=== PATIENT | female | born 1960 | race Caucasian/White ===

== ENCOUNTER 2017-11-05 05:04 | Inpatient (IN) | payer OTHER, BC ==
[~2017-11-05] VITALS: Ht 160 cm; Wt 69.0 kg
[2017-11-05] MEDS ORDERED: ALDACTONE25 MG PO (05:32)
[2017-11-05] MEDS ORDERED: OMEPRAZOLE20 MG PO ×2 (05:33→09:12)
[2017-11-05] MEDS ORDERED: ZYPREXA2.5 MG PO (05:33)
[2017-11-05] MEDS ORDERED: NORCO 5-325 TA1 EACH PO (05:34)
[2017-11-05] MEDS ORDERED: DIAZEPAM2 MG PO (05:35)
[2017-11-05] MEDS ORDERED: PHENTERMINE H37.5 M1 PO (05:36)
[2017-11-05] MEDS ORDERED: SPIRONOLACTONE25 MG PO (05:36)
[2017-11-05] MEDS ORDERED: CLONIDINE HCL0.1 MG (05:36)
[2017-11-05] MEDS ORDERED: LAMOTRIGINE200 MG PO (05:37)
[2017-11-05] MEDS ORDERED: OLANZAPINE2.5 MG PO (05:38)
[2017-11-05] MEDS ORDERED: ESTRADIOL1 EAC1 TD (05:38)
[2017-11-05] MEDS ORDERED: HYDROCHLOROTHIA25 MG PO (05:39)
[2017-11-05] MEDS ORDERED: K-TAB ER20 MEQ PO (05:40)
[2017-11-05] MEDS ORDERED: VENTOLIN HFA18 GM INH (05:40)
[2017-11-05] MEDS ORDERED: POTASSIUM CHLO20 ME1 PO (05:41)
[2017-11-05] MEDS ORDERED: OMEPRAZOLE40 MG PO (05:41)
[2017-11-05] MEDS ORDERED: CATAPRES0.1 MG PO (11:40)
--- NOTE | 2017-11-05 20:38 | EKG ---
[facility] [address] [facility] [place] [address] Signed Sinus tachycardia Possible Left atrial enlargement Cannot rule out Anterior infarct , age undetermined Abnormal ECG No previous ECGs available Confirmed by CODIE PARRA MD ([id number]) on 11/05/2017 8:37:59 PM Electronically Signed By: CODIE PARRA MD 11/05/172037 PATIENT NAME: MANDO DEAN VANIA Electrocardiogram DATE OF : 58 PHYSICIAN: CODIE PARRA MD REPORT #: [id number] REPORT IS CONFIDENTIAL AND NOT TO BE RELEASED WITHOUT AUTHORIZATION
== END 2017-11-05 15:00 | disposition short-term general hospital (02) | DRG 189 ==
LOC: ED 05:04 → MS 07:55
PROVIDERS: ADMIT Internal Medicine
DX: J96.01 Acute respiratory failure with hypoxia (principal); J18.9 Pneumonia, unspecified organism; Z85.79 Personal history of other malignant neoplasms of lymphoid, hematopoietic and related tissues; Z85.118 Personal history of other malignant neoplasm of bronchus and lung; K21.9 Gastro-esophageal reflux disease without esophagitis; Z87.891 Personal history of nicotine dependence; Z88.0 Allergy status to penicillin; Z98.84 Bariatric surgery status; Z92.21 Personal history of antineoplastic chemotherapy
CPT/HCPCS: 70450; 71020; 71260; 80053; 83880; 84155; 84165; 84484; 85025; 85379; 87502; 93005; 93010; 94762; 96374; 96375; 99285; J1170; J1650; J1956; J2405; J2920; Q9967

== ENCOUNTER 2022-04-13 15:06 | Emergency (ER) | payer BC ==
[~2022-04-13] VITALS: Ht 160 cm; Wt 81.3 kg
[~2022-04-13 15:06] MED LIST: ALDACTONE25 MG PO; CATAPRES0.1 MG PO; CLONIDINE HCL0.1 MG; DIAZEPAM2 MG PO; ESTRADIOL1 EAC1 TD; HYDROCHLOROTHIA25 MG PO; K-TAB ER20 MEQ PO; LAMOTRIGINE200 MG PO; NORCO 5-325 TA1 EACH PO; OLANZAPINE2.5 MG PO; OMEPRAZOLE20 MG PO; OMEPRAZOLE40 MG PO; PHENTERMINE H37.5 M1 PO; POTASSIUM CHLO20 ME1 PO; SPIRONOLACTONE25 MG PO; VENTOLIN HFA18 GM INH; ZYPREXA2.5 MG PO
--- OUTSIDE RECORDS SUMMARY | 2022-04-13 15:10 | XMS ---
PreManage Notification: MANDO DEAN Security Print Line Inspector Events No recent Security Events currently on file CRITERIA MET - PDMP [facility]ARE [facility]: [phone] Jordon has no Care Guidelines for this patient. Milady VISIT COUNT (12 MO.) 1 ESTIVEN Shaikh TOTAL 1 NOTE: Visits indicate total known visits. ED/UCC VISIT TRACKING (12 MO.) 04/13/2022 15:07 ESTIVEN Escobedo OR TYPE: Emergency COMPLAINT: - POSS BLOODCLOT R LEG INPATIENT VISIT TRACKING (12 MO.) No inpatient visits to display in this time frame [id number]
== END 2022-04-13 16:45 | disposition home or self-care (01) ==
LOC: ED 15:06
DX: S86.911A Strain of unspecified muscle(s) and tendon(s) at lower leg level, right leg, initial encounter (principal); J45.909 Unspecified asthma, uncomplicated; Z85.118 Personal history of other malignant neoplasm of bronchus and lung; Z87.891 Personal history of nicotine dependence; Z88.0 Allergy status to penicillin; Z88.5 Allergy status to narcotic agent; Z88.8 Allergy status to other drugs, medicaments and biological substances; Z79.899 Other long term (current) drug therapy
CPT/HCPCS: 93971; 99283-25

== ENCOUNTER 2022-05-30 13:58 | Emergency (ER) | payer BC ==
[~2022-05-30] VITALS: Ht 160 cm; Wt 74.5 kg
--- OUTSIDE RECORDS SUMMARY | 2022-05-30 14:00 | XMS ---
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 Milady VISIT COUNT (12 MO.) 2 ESTIVEN Shaikh TOTAL 2 NOTE: Visits indicate total known visits. ED/UCC VISIT TRACKING (12 MO.) 05/30/2022 13:58 ESTIVEN Escobedo OR TYPE: Emergency COMPLAINT: - INFUSION 04/13/2022 15:07 ESTIVEN [facility]obedo OR TYPE: Emergency COMPLAINT: - POSS BLOODCLOT R LEG DIAGNOSES: - Strain of unspecified muscle(s) and tendon(s) at lower leg level, right leg, initial encounter - Personal history of other malignant neoplasm of bronchus and lung - Allergy status to other drugs, medicaments and biological substances - Allergy status to narcotic agent - Allergy status to penicillin - Unspecified asthma, uncomplicated - Other alf (current) drug therapy - Personal history of nicotine dependence - Pain in right leg INPATIENT VISIT TRACKING (12 MO.) No inpatient visits to display in this time frame [email or web address]
== END 2022-05-30 17:49 | disposition home or self-care (01) ==
LOC: ED 13:58
DX: U07.1 COVID-19 (principal); Z23 Encounter for immunization; J45.909 Unspecified asthma, uncomplicated; Z87.891 Personal history of nicotine dependence; Z88.0 Allergy status to penicillin; Z88.5 Allergy status to narcotic agent; Z88.8 Allergy status to other drugs, medicaments and biological substances; Z79.899 Other long term (current) drug therapy
CPT/HCPCS: 96374; 99283-25

== ENCOUNTER 2023-01-09 15:16 | Emergency (ER) | payer BC ==
[~2023-01-09] VITALS: Ht 160 cm; Wt 68.5 kg
[~2023-01-09 15:16] MED LIST changes: +ALBUTEROL2.5 MG/3 M INH; +CEFPODOXIME PR200 MG PO; +DULCOLAX5 MG PO; +ESTRADIOL1 EA10 TD; +ESTRADIOL1 EAC5 TD; +FLUTICASONE PRO16 GM NAS; +FRONT WHEELED WALKER XX; +FUROSEMIDE20 MG PO; +GABAPENTIN100 MG PO; +HYDROMORPHONE HC2 MG PO; +LAMOTRIGINE100 MG PO; +LAMOTRIGINE150 MG PO; +METRONIDAZOLE500 MG PO; +MIRALAX17 GM PO; +OLANZAPINE10 MG PO; +SYMBICORT 80-10.2 GM INH
--- OUTSIDE RECORDS SUMMARY | 2023-01-09 15:18 | XMS ---
PreManage Notification: MANDO DEAN Security Earth Mover Events No recent Security Events currently on file CRITERIA MET - PDMP [facility]: [phone] Jordon has no Care Guidelines for this patient. Milady VISIT COUNT (12 MO.) 4 ESTIVEN Shaikh TOTAL 4 NOTE: Visits indicate total known visits. ED/UCC VISIT TRACKING (12 MO.) 01/09/2023 15:17 ESTIVEN Escobedo OR TYPE: Emergency COMPLAINT: - SOB, COUGH 10/02/2022 12:59 ESTIVEN Escobedo OR TYPE: Emergency COMPLAINT: - FALL, DIZZY, HEAD/BACK INJURY 05/30/2022 13:58 ESTIVEN [facility]obedo OR TYPE: Emergency COMPLAINT: - INFUSION DIAGNOSES: - Allergy status to penicillin - Unspecified asthma, uncomplicated - Allergy status to other drugs, medicaments and biological substances - COVID-19 - Personal history of nicotine dependence - Encounter for immunization - Cough, unspecified - Other alf (current) drug therapy - Allergy status to narcotic agent 04/13/2022 15:07 ESTIVEN Escobedo OR TYPE: Emergency COMPLAINT: - POSS BLOODCLOT R LEG DIAGNOSES: - Allergy status to other drugs, medicaments and biological substances - Strain of unspecified muscle(s) and tendon(s) at lower leg level, right leg, initial encounter - Personal history of nicotine dependence - Unspecified asthma, uncomplicated - Allergy status to narcotic agent - Personal history of other malignant neoplasm of bronchus and lung - Pain in right leg - Other alf (current) drug therapy - Allergy status to penicillin INPATIENT VISIT TRACKING (12 MO.) 10/02/2022 13:00 ESTIVEN Escobedo OR TYPE: Observation COMPLAINT: - SYNCOPE,SACRAL FRACTURE DIAGNOSES: - Pneumonitis due to inhalation of food and vomit - Allergy status to narcotic agent - Pathological fracture, other site, initial encounter for fracture - Personal history of nicotine dependence - Acute respiratory failure with hypoxia - Unspecified asthma, uncomplicated - Bipolar disorder, unspecified - Allergy status to analgesic agent - Other termite renewal inspector (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
[2023-01-09] MEDS ORDERED: FUROSEMIDE20 MG PO (15:35)
[2023-01-09] MEDS ORDERED: LORAZEPAM0.5 MG PO (15:36)
[2023-01-09] MEDS ORDERED: SPIRONOLACTONE25 MG PO (15:37)
[2023-01-09] MEDS ORDERED: DOXYCYCLINE HY100 MG PO (16:47)
--- NOTE | 2023-01-10 07:32 | EKG ---
[facility] [address] [facility] [place], [place] [address] Signed Normal sinus rhythm Normal ECG When compared with ECG of 02-OCT-2022 13:49, No significant change was found Confirmed by CODIE PARRA MD ([id number]) on 01/10/2023 7:32:24 AM Electronically Signed By: CODIE PARRA MD 01/10/23 0732 PATIENT NAME: CECILIO DEANBUCK CARO Electrocardiogram DATE OF : 58 PHYSICIAN: CODIE PARRA MD REPORT #: [id number] REPORT IS CONFIDENTIAL AND NOT TO BE RELEASED WITHOUT AUTHORIZATION
== END 2023-01-09 18:40 | disposition home or self-care (01) ==
LOC: ED 15:16
DX: J18.9 Pneumonia, unspecified organism (principal); E86.0 Dehydration; Z20.822 Contact with and (suspected) exposure to COVID-19; J45.909 Unspecified asthma, uncomplicated; Z87.891 Personal history of nicotine dependence; Z88.0 Allergy status to penicillin; Z88.2 Allergy status to sulfonamides; Z88.8 Allergy status to other drugs, medicaments and biological substances; Z88.6 Allergy status to analgesic agent; Z79.899 Other long term (current) drug therapy
CPT/HCPCS: 36415; 71045; 80053; 81003; 84484; 85025; 87502; 93005; 93010; 96361; 96374; 96375; 99285-25; C9803; J0456; J0696; J7030; J7060; U0003

== ENCOUNTER 2025-04-04 16:44 | Inpatient (IN) | payer MEDICARE, OTHER ==
[~2025-04-04] VITALS: Ht 160 cm; Wt 67.3 kg
[~2025-04-04 16:44] MED LIST changes: +AZITHROMYCIN500 MG PO; +CALCIUM 600-VI1 EAC6 PO; +CEFDINIR300 MG PO; +DOXYCYCLINE HY100 MG PO; +IBUPROFEN100 MG/51 PO; +IPRAT-ALBUT 0.5-3 ML INH; +IRON325 M1 PO; +LEVOTHYROXINE75 MCG PO; +LORAZEPAM0.5 MG PO; +MULTI VITAMIN1 EACH PO; +ONDANSETRON ODT8 MG PO; +PREDNISONE20 MG PO; +VITAMIN C500 M1 PO; +VITAMIN K100 MCG PO; +[UNRECOGNIZED DRUG - OTHER] PO
[2025-04-04] MEDS ORDERED: HYDROmorphone HCL 1 MG/ML SYR IV PRN ×2 (17:30→18:45)
[2025-04-04] MEDS ORDERED: ondansetron HCL 4 MG/2 ML VIAL IV ONE (17:30)
[2025-04-04 17:51] LABS: BASOPHILS 0.3 % (0.1-1.2); EOSINOPHILS 0 % (0.7-5.8); HEMATOCRIT 36.6 % (34.1-44.9); HEMOGLOBIN 11.2 g/dL (11.2-15.7); LYMPHOCYTES 21.8 % (19.3-51.7); MCH 26.7 PG (25.6-32.2); MCHC 30.6 g/dL (32.2-35.5); MCV 87.1 fL (79.4-94.8); MONOCYTES 6.6 % (4.7-12.5); PLATELET COUNT 277 K/uL (182-369)
[2025-04-04 18:00] LABS: ANION GAP 6.9 (7-21); BUN/CREATININE RATIO 11.5 (6.0-28.6); CREATININE, SERUM 1.13 mg/dL (0.55-1.02); INR 1.05 (0.80-1.30); POTASSIUM 3.9 mmol/L (3.5-5.1); PROTIME 13.1 Sec (11.2-14.2)
[2025-04-04 20:13] VITALS: BP 119/56
--- NOTE | 2025-04-04 20:37 | NUR ---
PATIENT ARRIVED TO THE FLOOR VIA STRETCHER. PATIENT MOVED FROM STRETCHER TO BED BY STAFF. PATIENT POSTIONED IN BED FOR COMFORT. PUREWICK PLACED. PATIENTS VITALS TAKEN AND RECORDED. PATIENTS ADMISSION COMPLETED. MANDA LOCKETT TO ANGELICA PATIENT. PATIENT DENIES ANY PAIN AT THIS TIME. PATIENT PLACED ON CPOX. PATIENT PLACED ON 2L VIA NC. PATIENT UPDATED ON PLAN OF CARE AND ALL QUESTIONS ANSWERED. PATIENT PROVIDED ICE WATER. PATIENT DENIES ANY FURTHER NEEDS. CALL LIGHT IN REACH. FAMILY REMAINS IN ROOM.
--- NOTE | 2025-04-04 21:53 | NUR ---
PATIENT RESTING IN BED, LEG SUPPORTED WITH PILLOW. FAMILY AT BEDSIDE VISITING. ICE PACK PLACED ON RIGHT HIP. PATIENT DENIES ANY NEEDS, REPORTS PAIN IS WELL CONTROLLED AT THIS TIME. CALL LIGHT IN REACH
[2025-04-05] VITALS (12 sets, daily range): BP systolic 102–122; BP diastolic 41–66
--- NOTE | 2025-04-05 00:23 | NUR ---
ROUNDED ON PATIENT, PATIENT GIVEN PRN PAIN MEDICATION. REPORTS NERVE BLOCK IS WORKING WELL, HOWEVER SHE HAS SOME DISCOMFORT IN HER RIGHT HIP. ICE PACK OVER SITE. NC IN PLACE 1L, CPOX AT BEDSIDE. PATIENT MADE NPO, UNDERSTANDING OF NPO STATUS VERBALIZED. PATIENT DENIES FURTHER NEEDS, CALL LIGHT IN REACH
--- NOTE | 2025-04-05 02:00 | NUR ---
ROUNDED ON PATIENT, PATIENT WOKE TO RN ENTERING ROOM. VS OBTAINED AND RECORDED. PATIENT REPORTS MANAGEABLE 2/10 PAIN IN HER RIGHT HIP. NEW ICE PACK PROVIDED. PATIENT ENCOURAGED TO VOID, SHE STATES SHE "FEELS LIKE SHE HAS THE URGE TO GO BUT FEELS WEIRD ABOUT VOIDING IN BED". PATIENT REMINDED THAT SHE HAS A PURWICK IN PLACE. EDUCATED ON USE, DENIES FURTHER NEEDS, CALL LIGHT IN REACH.
--- NOTE | 2025-04-05 03:30 | NUR ---
PATIENT REMAINS UNABLE TO VOID. BLADDER SCAN COMPLETED, 442 ML NOTED IN BLADDER. WATER IN SINK TURNED ON FOR PATIENT, PATIENT ENCOURAGED TO VOID.
--- NOTE | 2025-04-05 05:46 | NUR ---
16f godoy placed with 450ml return. pt tolerated well.pt tolerated well. primary rn in room to complete cares.
[2025-04-05] MEDS ORDERED: CEFAZOLIN SODIUM 2 GM/20 ML SYR IV SCH ×2 (07:00→15:00)
[2025-04-05] MEDS ORDERED: TRANEXAMIC ACID IN NACL,ISO-OS 1,000 MG/100 ML PIGGYBACK IV SCH ×3 (07:00→14:30)
--- NOTE | 2025-04-05 07:01 | NUR ---
REPORT RECEIVED FROM POWDER BLENDER AND POURER HEIDI CASTRO. PATIENT IS LYING IN BED WITH EYES OPEN AND RESPIRATIONS ARE EVEN AND UNLABORED. PATIENT IS ON 1 L NC WITH THE CPOX AT BEDSIDE. PATIENT REPORTS NOT SLEEPING MUCH LAST NIGHT. PATIENT STATED NO FURTHER NEEDS AT THIS TIME. CALL LIGHT AND PERSONAL BELONGINGS ARE WITHIN REACH.
--- NOTE | 2025-04-05 07:31 | NUR ---
UR CLINICAL REVIEW: 2 MN FOR VERSALUS- PER ROOM SERVICE SERVER MEETS INPT FOR HIP FRACTURE WITH NEED FOR PAIN CONTROL AND SURGICAL INTERVENTION MEDICARE INPT 04/04/25 @ 5954 ORDER MATCHES REG NO AUTH REQUIRED PER MEDICARE GUIDELINES DISCHARGE PENDING FURTHER EVAL AND TREATMENT NEEDS
--- NOTE | 2025-04-05 07:50 | NUR ---
PATIENT IS LYING IN BED WITH HOB SLIGHTLY ELEVATED. PATIENT WITH EYES OPEN AND RESPIRATIONS ARE EVEN AND UNLABORED. FULL ASSESSMENT COMPLETE AND DOCUMENTED IN THE CHART. PATIENT IS ALERT AND ORIENTED TIMES FOUR. PATIENT IS BED BOUND AT THIS TIME. SEWELL CATHETER IN PLACE WITH MINIMAL AMONT OF YELLOW URINE. SKIN WITH SCATTERED BRUISING NOTED. IV SITE FLUSHED WITH 10 ML NORMAL SALINE AND IS SALINE LOCKED. IV DRESSING IS CLEAN, DRY, AND INTACT. PATIENT IS NPO WITH ACTIVE BOWEL TONES IN ALL FOUR QUADRANTS. CARDIAC WITH NORMAL S1 AND S2 ON AUSCULTATION. RADIAL AND PEDAL PULSES ARE STRONG BILATERALLY. NO EDEMA NOTED. CAPILLARY REFILL IN THE UPPER AND LOWER EXTREMITIES IS LESS THAN 3 SECONDS BILATERALLY. SENSATION INTACT WITH NO COMPLAINTS OF NUMBNESS OR TINGLING. PATIENT IS ON ROOM AIR WITH THE CPOX AT BEDSIDE. LUNG SOUNDS ARE CLEAR THROUGHOUT. PATIENT RATED PAIN 4/10 IN THE RIGHT HIP. PATIENT REPORTS THE THAT BLOCK STARTING TO WEAR OFF. PATIENT IS NOT REQUESTING ANYTHING FOR PAIN AT THIS TIME. CALL LIGHT AND PERSONAL BELONGINGS ARE WITHIN REACH.
--- NOTE | 2025-04-05 07:57 | NUR ---
PATIENT IN BED AT THIS TIME. THIS WASHING TUB OPERATOR AND WASHING TUB OPERATOREmani WALLACE CHARTED HOURLY ROUNDS. CALL LIGHT WAS IN REACH. PATIENT HAS NO FUTHER NEEDS.
[2025-04-05] MEDS ORDERED: Ropivacaine HCl 0.5% 30 ML VIAL ONE (08:10)
[2025-04-05] MEDS ORDERED: DEXAMETHASONE SOD PHOS 4 MG/ML VIAL ONE ×2 (08:10)
[2025-04-05] MEDS ORDERED: SODIUM CHLORIDE 0.9% 20 ML IV ONE (08:10)
[2025-04-05] MEDS ORDERED: LIDOCAINE HCL 2% 5 ML SDV ONE ×2 (08:10→10:14)
--- NOTE | 2025-04-05 08:13 | NUR ---
PATIENT IS LYING IN BED WITH EYES CLOSED AND RESPIRATIONS ARE EVEN AND UNLABORED. PATIENT IS ON ROOM AIR WITH THE CPOX AT BEDSIDE. CALL LIGHT AND PERSONAL BELONGINGS ARE WITHIN REACH.
--- NOTE | 2025-04-05 08:20 | NUR ---
ALERT AND ORIENTED IN BED. STATES SHE LIVES IN SINGLE LEVEL HOME WITH SPOUSE, ROSANNE. THERE ARE 6 STEPS TO GET INSIDE. STATES SHE HAS NEBULIZER AND NO OTHER DME. SPOUSE WILL PROVIDE TRANSPORTATION. STATES SHE HAS NO FINANCIAL DIFFICULTIES. STATES SHE DOES NOT WANT TO GO TO SNF. STATES SHE WOULD LIKE TO GO HOME WITH HOME HEALTH IF NEEDED. STATES HER WILL STAY WITH HER FOR A WEEK THEN HER DAUGHTER WILL STAY WITH HER DURING THE DAY. INFORMATION FOR [facility] AND LIST OF POTENTIAL DME NEEDED PROVIDED TO PATIENT. STATES SHE WILL HAVE [employer]OP SUPERVISOR ITEMS PRIOR TO DC.
--- NOTE | 2025-04-05 08:20 | NUR ---
NOTIFIED OF THE PATIENT NOT HAVING ANY MAINTENANCE FLUIDS AT THIS TIME DUE TO BEING NPO. THIS RN NOTIFIED MD THAT SHE WAS SCHEDULED FOR SURGERY AROUND NOON. MD STATED NOT NEEDING IV FLUIDS AT THIS TIME. NO FURTHER ORDERS.
[2025-04-05] MEDS ORDERED: FLUTICASONE-SA1 EAC4 INH (08:41)
[2025-04-05] MEDS ORDERED: ESTRADIOL1 EAC2 TD (08:42)
--- NOTE | 2025-04-05 09:13 | NUR ---
PATIENT IN BED AT THIS TIME. THIS RADIOGRAPHIC TECHNOLOGIST AND RADIOGRAPHIC TECHNOLOGIST CHRISTOPHE CHARTED VITALS AND I&O'S. CALL LIGHT WITHIN REACH, NO FURTHER NEEDS AT THIS TIME.
--- NOTE | 2025-04-05 09:49 | NUR ---
VISITED DURING SPIRITUAL CARE ROUNDS. PT STATES TRYING TO REST; REQUESTS NO VISIT AT THIS TIME. PROVIDED PRAYER. WILL RETURN CIRCUMSTANCES WARRANT.
[2025-04-05] MEDS ORDERED: propofoL 200 MG/20 ML VIAL ONE ×2 (10:14→10:19)
[2025-04-05] MEDS ORDERED: BUPIVACAINE 0.75% IN DEXTROSE 2 ML AMP ONE (10:14)
[2025-04-05] MEDS ORDERED: BUDESONIDE 0.25 MG/2 ML ML INH SCH (10:15)
[2025-04-05] MEDS ORDERED: ARFORMOTEROL TARTRATE 15 MCG/2 ML VIAL INH SCH (10:15)
--- NOTE | 2025-04-05 10:16 | NUR ---
LEELA, STUDENT NURSE CALLED AT THIS TIME. TELOPHONE ORDER FOR LR AT 125 ML/HR FROM [facility] IN DAY SURGERY OBTAINED. ORDER PUT IN BY THIS RN. CALL ENDED.
[2025-04-05] MEDS ORDERED: fentaNYL citrate 100 MCG/2 ML VIAL ONE (10:17)
[2025-04-05] MEDS ORDERED: LACTATED RINGER'S 1,000 ML IV SCH (10:30)
--- NOTE | 2025-04-05 10:33 | NUR ---
THIS RETAIL ASSISTANT MANAGER AND RETAIL ASSISTANT MANAGER MADISON DID PRE SURGICAL WIPE DOWN, BECUASE PATIENT WAS UNABLE TO ROLL HEIDI SCALES SAID SAID TO WIPE DOWN MUCH A POSSIBLE. WE WIPED DOWN EVERYTHING BUT THE BACK. CHANGED GOWN AND TOP SHEET. PATIENT IS LAYING DOWN WITH CALL LIGHT IN REACH WITH NO FUTHER ASSISTANCE NEEDED.
[2025-04-05] MEDS ORDERED: INTRA-ARTICULAR ANALGESIC INJECTION IAARTIC ONE (10:45)
[2025-04-05] MEDS ORDERED: NALOXONE HCL 0.4 MG SYR IV PRN (11:00)
[2025-04-05] MEDS ORDERED: IBLOOD GLUCOSE TEST STRIP 1 EA TEST VI PRN (11:00)
[2025-04-05] MEDS ORDERED: fentaNYL citrate 50 MCG/ML SDV IV PRN (11:00)
[2025-04-05] MEDS ORDERED: ondansetron HCL 4 MG/2 ML VIAL IV PRN (11:00)
--- NOTE | 2025-04-05 11:01 | NUR ---
NEW IV SITE PLACED BY HEIDI NATH. PATIENT TOLERATED WELL. PATIENT AND FAMILY LEFT THE ROOM AT THIS TIME WITH HEIDI JOVEL FROM OR. PATIENT IS OFF THE FLOOR NOW.
[2025-04-05] MEDS ORDERED: MIDAZOLAM HCL 2 MG/2 ML VIAL ONE (11:05)
[2025-04-05] MEDS ORDERED: MORPHINE SULFATE 1 MG/ML VIAL ONE (11:20)
[2025-04-05] MEDS ORDERED: ePHEDrine sulfate 50 MG/ML AMP ONE (12:01)
--- NOTE | 2025-04-05 12:03 | NUR ---
PATIENT REMAINS OFF THE FLOOR AT THIS TIME.
[2025-04-05] MEDS ORDERED: SODIUM CHLORIDE15 M1 INH (12:18)
[2025-04-05] MEDS ORDERED: LACTATED RINGER'S 1,000 ML IV ONE (12:24)
[2025-04-05] MEDS ORDERED: OXYCODONE HCL 5 MG TAB PO PRN (12:30)
[2025-04-05] MEDS ORDERED: IPRAT-ALBUT 0.5-3 ML INH (12:31)
--- NOTE | 2025-04-05 13:00 | NUR ---
PATIENT REMAINS OFF THE FLOOR AT THIS TIME IN SURGERY.
[2025-04-05] MEDS ORDERED: droPERidol 5 MG/2 ML VIAL ONE (13:03)
[2025-04-05] MEDS ORDERED: droPERidol 5 MG/2 ML VIAL IV PRN (13:15)
--- NOTE | 2025-04-05 13:53 | NUR ---
IN ROOM WITH HEIDI NATH. RECIEVED REPORT FROM HEIDI CAI. PT AWAKE AND TALKATIVE. FIRST SET OF POST-OP VS TAKEN. DRESSING VISUALIZED, NO DRAINAGE NOTED. PT DENIES PAIN AT THIS TIME. FAMILY IN ROOM. CALL LIGHT WITHIN REACH, DENIES ANY NEEDS AT THIS TIME.
[2025-04-05] MEDS ORDERED: GABAPENTIN 300 MG CAP PO SCH (15:00)
[2025-04-05] MEDS ORDERED: ACETAMINOPHEN 500 MG TAB PO SCH (15:00)
[2025-04-05] MEDS ORDERED: VENTOLIN HFA18 GM INH (15:08)
--- NOTE | 2025-04-05 15:11 | NUR ---
04/05/25 1511 Larisa Pyle 1237- PT PRESENTS TO PACU, SEMI TY POSITION, AWAKE BUT DROWSY. LR INFUSING TO LAC IV. BREATHING EVEN AND NON LABORED, ABD SOFT, AND NON DISTENDED. DRESSING IN PLACE TO RIGHT HIP, CDI. PT C/O SLIGHT NAUSEA AND 5/10 PAIN BUT TOLERABLE. ALL MONITORS IN PLACE. RAC IV HAS BLOOD AROUND SITE. 1253- PT MEDICATED WITH ZOFRAN, XRAY COMPLETED. 1300- 1ST LITER COMPLETED, 2ND LITER STARTED. PT REPORTS NAUSEA REMAINS, CONTACTED LEENA HOLMAN FOR FURTHER ORDERS. 1305- PT MEDICATED WITH INAPSINE FOR CONTINUED NAUSEA. PT REPORTS THAT PAIN IS IMPROVING. 1310- WHILE RESTING PT, DESATS TO MID 80'S, INCREASES WITH COUGHING AND DEEP BREATHING. PLACED ON 3L O2 PER NC, FOR REST. SCD'S AND KADE HOSE PLACED WITH CRYO CUFF. PT TOLERATED WELL. 1330- PT REPORTS PAIN IN HIP IS GONE WITH ICE, JUST FEELS PRESSURE. SPINAL REMAINS SAME LEVEL, BUT NO DIFFICULTY BREATHING. PT IS ABLE TO FLEX RIGHT FOOT SOME BUT LEGS REMAIN NUMB. PULSES INTACT. LR INFUSING TO LAC IV, TKO. RAC IV LEAKING BLOOD AROUND SITE, D/C'D, DRESSING IN PLACE, TIP INTACT. SEWELL CATHETER IN PLACE DRAINING CLEAR DILUTE URINE. 1350- PT TAKEN BACK TO MED/SURG ROOM 115, SEWELL CATHETER AND CRYO CUFF IN PLACE. LR HANGING TKO TO LAC IV. BED PLUGGED IN AND LOWEST POSITION, VITAL SIGNS OBTAINED FOR MED/SURG, CONTINUOUS PULSE OX IN PLACE. FAMILY AT BEDSIDE, REPORT AT BEDSIDE TO PHAM GORDON, CARE OF PT TURNED OVER AT THIS TIME.
--- NOTE | 2025-04-05 15:14 | NUR ---
medications reconciled using pharmacy records and patient interview
--- NOTE | 2025-04-05 15:15 | NUR ---
REPORT RECEIVED FROM HEIDI NATH AT THIS TIME.
--- NOTE | 2025-04-05 15:30 | NUR ---
PATIENT IS LYING IN BED WITH HOB ELEVATED. PATIENT DAUGHTER IS SITTING ON THE COUCH. TXA ADMINISTERED AT THIS TIME. LR IS INFUSING AT 125 ML/HR. FULL ASSESSMENT COMPLETE AND DOCUMENTED IN THE CHART. KAMERON CARE AND SEWELL CARE COMPLETE AT THIS TIME. IV SITE FLUSHED WITH 10 ML NORMAL SALINE. IV DRESSING IS CLEAN, DRY, AND INTACT. PATIENT WITH NO COMPLAINTS OF PAIN OR NAUSEA. DRESSING ON THE RIGHT HIP IS CLEAN, DRY, AND INTACT. CRYO CUFF IN PLACE. PATIENT IS ON 2 L NC WITH THE CPOX AT BEDSIDE. THIS IS NOT CHRONIC FOR THE PATIENT. LUNG SOUNDS ARE CLEAR IN THE RIGHT LUNG AND THE LEFT UPPER LUNG. LEFT LOWER LOBE IS DIMINISHED. PATIENT WITH NO COMPLAINTS OF SOB. PATIENT STATED NO FURTHER NEEDS AT THIS TIME. CALL LIGHT AND PERSONAL BELONGINGS ARE WITHIN REACH.
--- NOTE | 2025-04-05 17:08 | NUR ---
VITAL SIGNS TAKEN AND DOCUMENTED IN THE CHART. 1800 MEWS COMPLETE. PATIENT WITH NO COMPLAINS OF PAIN. PATIENT TITRATED TO 1 L NC WITH THE CPOX AT BEDSIDE. PATIENT IS SITTING UPRIGHT IN BED AND EATING DINNER. PATIENT IS LYING ON THE COUCH. PATIENT STATED NO FURTHER NEEDS AT THIS TIME. CALL LIGHT AND PERSONAL BELONGINGS ARE WITHIN REACH.
--- NOTE | 2025-04-05 18:06 | NUR ---
PATIENT IS LYING IN BED WITH HOB ELEVATED. PATIENT WITH EYES CLOSED AND RESPIRATIONS ARE EVEN AND UNLABORED. PATIENT REMAINS ON 1 L NC WITH THE CPOX AT BEDSIDE. PATIENT IS LYING ON THE COUCH. CALL LIGHT AND PERSONAL BELONGINGS ARE WITHIN REACH.
--- NOTE | 2025-04-05 19:20 | NUR ---
REPORT RECEIVED FROM JOVITA RN. PATIENT RESTING IN BED WITH ICE PLACED OVER RIGHT HIP. DRESSING C/D/I. FAMILY AT BEDSIDE. PATIENT DECLINES ANY PAIN AT THIS TIME, CALL LIGHT IN REACH.
[2025-04-05] MEDS ORDERED: BUDESONIDE 0.5 MG/2 ML VIAL INH SCH (20:00)
--- NOTE | 2025-04-05 20:45 | NUR ---
SCHEDULED MEDICATIONS ADMINISTERED PER ORDER. PATIENT RESTING IN BED, FRESH ICE IN MACHINE. FAMILY AT BEDSIDE. SEWELL DRAINING TO BEDSIDE. KADE HOSE IN PLACE, LEG SUPPORTED WITH PILLOW. DENIES FURTHER NEEDS AT THIS TIME, CALL LIGHT IN REACH.
[2025-04-05] MEDS ORDERED: SENNOSIDES 1 TAB PO SCH (21:00)
[2025-04-05] MEDS ORDERED: ASPIRIN 325 MG TAB PO SCH (21:00)
[2025-04-05] MEDS ORDERED: OLANZapine 2.5 MG TAB PO SCH (21:00)
[2025-04-05] MEDS ORDERED: OLANZapine 10 MG TAB PO SCH (21:00)
[2025-04-05] MEDS ORDERED: lamoTRIgine 150 MG TAB PO SCH (21:00)
[2025-04-05] MEDS ORDERED: MAGNESIUM HYDROXIDE 30 ML UDC PO SCH (21:00)
--- NOTE | 2025-04-05 23:10 | NUR ---
SCHEDULED MED GIVEN PER ORDER. PATIENT RESTING COMFORTABLY IN BED, IVF CONTINUING PER ORDER. PATIENT DENIES ANY PAIN, COLD THERAPY OER SURGICAL SITE. RESPIRATIONS ARE EVEN AND UNLABORED. SNACK AND FRESH WATER GIVEN PER REQUEST, NO FURTHER NEEDS, CALL LIGHT IN REACH
[2025-04-06] VITALS (11 sets, daily range): BP systolic 101–117; BP diastolic 47–58
--- NOTE | 2025-04-06 02:00 | NUR ---
ALLOPATHIC DOCTOR OBTAINED VITALS AND I&O. SEWELL EMPTIED. PT STATES NO NEEDS AT THIS TIME. CALL LIGHT WITHIN REACH.
--- NOTE | 2025-04-06 02:15 | NUR ---
PATIENT RESTING WITH EYES CLOSED, RESPIRATIONS EVEN AND UNLABORED. CPOX AT BEDSIDE, NO FURTHER NEES, CALL LIGHT IN REACH
--- NOTE | 2025-04-06 04:22 | NUR ---
ROUNDED ON PATIENT, PATIENT RESTING WITH EYES CLOSED, RESPIRATIONS EVEN AND UNLABORED. NO NEEDS IDENTIFIED, CALL LIGHT IN REACH. CPOX AT BEDSIDE, PATIENT ON ROOM AIR AT THIS TIME, SPO2 94%. SCD IN PLACE, RLE SUPPORTED WITH PILLOW. KADE HOSE IN PLACE, IVF CONTINUING TO INFUSE PER ORDER.
--- NOTE | 2025-04-06 05:15 | NUR ---
VS OBTAINED AND RECORDED. INTAKE AND OUTPUT DOCUMENTED. PATIENT USED IS. PRN MEDICATION FOR 4/10 PAIN ADMINISTERED. DRESSING OVER SURGICAL SITE IS C/D/I. COLD THERAPY OVER SITE. SCD IN PLACE. IVF CONTINUING TO INFUSE PER ORDER WITHOUT DIFFICULTY. NO FURTHER NEEDS, CALL LIGHT IN REACH.
[2025-04-06 05:29] LABS: BASOPHILS 0.1 % (0.1-1.2); EOSINOPHILS 0.1 % (0.7-5.8); HEMATOCRIT 35.1 % (34.1-44.9); LYMPHOCYTES 25.4 % (19.3-51.7); MCH 27.3 PG (25.6-32.2); MCHC 31.3 g/dL (32.2-35.5); MCV 87.1 fL (79.4-94.8); MONOCYTES 8.6 % (4.7-12.5); NEUTROPHILS 65.6 % (34.0-71.1); PLATELET COUNT 221 K/uL (182-369); RBC 4.03 M/uL (3.93-5.22)
[2025-04-06 05:46] LABS: ANION GAP 6.5 (7-21); BUN/CREATININE RATIO 13.86 (6.0-28.6); CALCIUM 9.2 mg/dL (8.5-10.1); CREATININE, SERUM 1.01 mg/dL (0.55-1.02); MAGNESIUM 2.1 mg/dL (1.8-2.4); POTASSIUM 4.5 mmol/L (3.5-5.1)
--- NOTE | 2025-04-06 06:38 | NUR ---
PATIENT RESTING IN BED, RESPIRATIONS EVEN AND UNLABORED. CPOX AT BEDSIDE. SEWELL CATH CARE COMPLETED. NO FURTHER NEEDS, CALL LIGHT IN REACH
--- NOTE | 2025-04-06 06:56 | OR ---
[facility] [address] [place], [place] [address] Signed DATE OF OPERATION: 04/05/2025 SURGEON: Josefina Egan MD PREOPERATIVE DIAGNOSIS: Displaced right femoral neck fracture. POSTOPERATIVE DIAGNOSIS: Displaced right femoral neck fracture. PROCEDURE PERFORMED: Right bipolar hemiarthroplasty. INDUCTION MACHINE SETTER: Marysol Vela PA-C. Marysol was present and critical for all portions of procedure. ANESTHESIA: Spinal. BLOOD LOSS: 200 mL. IMPLANTS: Biomet size 12 biometric stem, -3 x 20 mm head and a 44 bipolar cup. BRIEF HISTORY: Darcy is a 64-year-old female who suffered a ground level fall after being thrown to the ground by the neighbor's dog. Risks and benefits of operative treatment were discussed with her and she elected to proceed. Once consent was obtained she was taken to the operating room. After adequate anesthesia, she was placed in left lateral decubitus position with an axillary roll. All downside pressure points padded. The right hip was prepped and draped in a standard sterile fashion. The hip was then approached through standard anterolateral incision carried through skin and subcutaneous tissue. IT band was divided longitudinally and the vastus lateralis was divided from the tip of the trochanter distally along the anterior margin. This was subperiosteal elevated around to the level of the lesser trochanter. The gluteus medius was noted to be torn from the trochanter leaving a ball anterior half of the trochanter. The remainder was split from the tip of the trochanter to the acetabular rim, peeled off the anterior neck. This allowed us visualization of the femoral neck, which was then cut one fingerbreadth above Electronically Signed By: JOSEFINA EGAN MD 04/06/25 0656 PATIENT NAME: MANDO DEAN OPERATIVE REPORT DATE OF : 58 REPORT #: [id number] PHYSICIAN: JOSEFINA EGAN MD PCP: JOHN JOINER REPORT IS CONFIDENTIAL AND NOT TO BE RELEASED WITHOUT AUTHORIZATION [facility] [address] [place], [place] [address] Signed the lesser trochanter. The fractured bone was then removed as was the femoral head. The femoral head was measured on the back table to 44. The 44 trial was placed in the acetabulum and found to be fitting well. The attention was turned to proximal femur. The bone fragments were cleaned up and the proximal femur was opened using donaie cutter, followed by the Chanelle awl. Sequential reaming followed by broaching up to a 12 was founded to be well fitting. The size 12 stem was then obtained and was impacted into the same level as the trial. Once this was accomplished, trial -3 head and 44 bipolar were placed on it and the hip was reduced. Good leg lengths and good motion was obtained. No shuck was noted. The hip was then dislocated and the two trials were removed and the final bipolar assembly was placed on the trunnion after cleaning it. The hip was again reduced, taken through range of motion and found to be good. The wound was then copiously irrigated with one bottle of Surgiphor followed by normal saline. The capsule was then closed using #2 FiberWire. The vastus and IT bands were then closed. We did close the gluteus medius back to the trochanter through drill holes. The subcutaneous tissue was closed with 0 Stratafix, the skin with brett and dressed with an Acticoat-7 dressing. She tolerated the procedure well. All sponge, needle, and instrument counts were correct. Josefina Egan MD BA/KARLAL /[id number] Copies: ~ Electronically Signed By: JOSEFINA EGAN MD 04/06/25 0656 PATIENT NAME: MANDO DEAN OPERATIVE REPORT DATE OF : 58 REPORT #: [id number] PHYSICIAN: JOSEFINA EGAN MD PCP: JOHN JOINER REPORT IS CONFIDENTIAL AND NOT TO BE RELEASED WITHOUT AUTHORIZATION
--- NOTE | 2025-04-06 07:11 | NUR ---
REPORT RECEIVED FROM HEIDI CASTRO. PATIENT AWAKE AND ALERT IN BED REPORTING MINIMAL PAIN AND EXCITEMENT ABOUT WORKING WITH PHYSICAL THERAPY TODAY. PATIENT IS WIGGLING HER TOES IN BED. CPOX IN PLACE AT BEDSIDE, PATIENT CURRENTLY ON ROOM AIR. NO REQUESTS, CALL LIGHT AND PERSONAL BELONGINGS IN REACH.
--- NOTE | 2025-04-06 07:47 | EKG ---
[facility] [address] [facility] [place], [place] [address] Signed Normal sinus rhythm Normal ECG When compared with ECG of 09-JAN-2023 15:37, No significant change was found Confirmed by Arden Naqvi MD ([id number]) on 04/06/2025 7:46:52 AM Electronically Signed By: ARDEN NAQVI MD 04/06/25 0747 PATIENT NAME: MANDO DEAN VANIA Electrocardiogram DATE OF : 58 PHYSICIAN: ARDEN NAQVI MD REPORT #: [id number] REPORT IS CONFIDENTIAL AND NOT TO BE RELEASED WITHOUT AUTHORIZATION
--- NOTE | 2025-04-06 08:07 | NUR ---
PATIENT IN BED AT THIS TIME. REVERBERATORY FURNACE OPERATOR REMOVED URINARY CATHETER PER RN ABDOULAYE REQUEST. PATIENTS CALL LIGHT WITHIN REACH, PATIENT HAS NO FURTHER NEEDS AT THIS TIME.
[2025-04-06] MEDS ORDERED: LEVOTHYROXINE SODIUM 75 MCG TAB PO SCH (09:00)
--- NOTE | 2025-04-06 09:28 | NUR ---
MEDICATION ADMINISTERED, SEE MAR. ASSESSMENT COMPLETE. PATIENT'S NERVE BLOCK CONTINUING TO WEAR OFF. SHE IS ABLE TO WIGGLE HER TOES AND BEND HER KNEE, REPORTS FULL SENSATION EXCEPT FOR SOME TINGLING "LIKE IT'S ASLEEP" IN HER THIGH RIGHT THIGH. PATIENT REPORTS HER PAIN IS A 4/10. PATIENT IS EXPRESSING FEARS REGARDING HAVING TO USE THE BATHROOM WHEN SHE NEEDS TO VOID (SEWELL CATHETER WAS PREVIOUSLY REMOVED BY TERRIE WALLACE AT 0800). THERAPEUTIC COMMUNICATION PROVIDED ON PAIN MEDICATIONS AND SUPPORT. PATIENT VERBALIZES UNDERSTANDING. PHYSICAL AND OCCUPATIONAL THERAPY ARRIVE AT THIS TIME. PT AND OT REMAIN IN ROOM.
--- NOTE | 2025-04-06 10:00 | NUR ---
PHYSICAL THERAPY AND OCCUPATIONAL THERAPY COMPLETE WORKING WITH PATIENT. PATIENT IS UP IN THE RECLINER WITH BLE ELEVATED. SCDs IN PLACE. CALL LIGHT AND PERSONAL BELONGINGS IN REACH.
--- NOTE | 2025-04-06 11:30 | NUR ---
PATIENT REMAINS RESTING UP IN THE RECLINER WITH BLE ELEVATED. PATIENT HAS HER EYES CLOSED, RR EVEN AND UNLABORED. SCDs IN PLACE, CALL LIGHT IN HER LAP.
--- NOTE | 2025-04-06 11:57 | NUR ---
UP IN RECLINER AT THIS TIME WITH EYES CLOSED. ALLOWED TO REST. CONTINUED NEED TO WORK WITH PT/OT DURING STAY. PLANS TO DC HOME WHEN SHE IS READY, WITH SPOUSE.
--- NOTE | 2025-04-06 13:56 | NUR ---
YAS FROM PHYSICAL THERAPY PRESENT IN ROOM TO EDUCATE PATIENT AND PATIENT'S . PATIENT IS IN THE RECLINER WITH BLE ELEVATED, CRYOCUFF IN PLACE. IV FLUSHES WNL AND SALINE LOCKED. PATIENT REPORTS SHE FEELS "SLEEPY" TODAY. THERAPEUTIC COMMUNICATION PROVIDED, EDUCATION OF POST-OP PROVIDED. PATIENT VERBALIZES UNDERSTANDING. PATIENT HAS NO REQUESTS, CALL LIGHT AND PERSONAL BELONGINGS IN REACH. PATIENT'S IN ROOM THROUGHOUT.
[2025-04-06] MEDS ORDERED: MICONAZOLE NITRATE 1 EA BTL TOP SCH (14:32)
--- NOTE | 2025-04-06 14:33 | NUR ---
PATIENT AMBULATES WITH THIS RN AND PHYSICAL THERAPIST YAS WITH ONE PERSON MODERATE ASSIST AND A FWW. PATIENT AMBULATES FROM RECLINER TO RESTROOM AND HAS 275ML VOID OF CLEAR, YELLOW URINE. PATIENT RETURNS TO RECLINER, CRYCUFF IN PLACE. PATIENT NOTED TO HAVE REDDENED AREA BENEATH THE RIGHT SIDE OF HER PANNUS WITH SMALL AREA OF SPLIT SKIN. NIO PLACED FOR ANTIFUNGAL POWDER, PILLOW CASE PLACED TO SEPARATE SKIN FOLDS IN THE MEANTIME. PATIENT REPORTS HER PAIN IS CURRENTLY A 4/10. BLE ELEVATED, YAS PROVIDES WARM BLANKET. PATIENT HAS NO OTHER REQUESTS, CALL LIGHT AND PERSONAL BELONGINGS IN REACH.
--- NOTE | 2025-04-06 15:05 | NUR ---
MEDICATION ADMINISTERED, SEE MAR. SKIN FOLD UNDER RIGHT PANNUS CLEANSED, PATTED DRY, AND DESENEX POWDER APPLIED. PILLOW CASE REPLACED TO SEPARATE SKIN FOLDS. PATIENT REMAINS UP IN RECLINER WITH BLE ELEVATED AND CRYOCUFF IN PLACE. PATIENT HAS TWO VISITORS ARRIVE. NO REQUESTS, CALL LIGHT AND PERSONAL BELONGINGS IN REACH.
--- NOTE | 2025-04-06 18:26 | NUR ---
PATIENT IS CURRENTLY SITTING UP IN THE RECLINER WITH IN THE ROOM. CRYO CUFF WAS EMPTIED AND REFILLED. DINNER TRAY REMOVED. CALL LIGHT AND PERSONAL ITEMS ARE WITHIN REACH. NO OTHER CARES WERE REQUESTED.
--- NOTE | 2025-04-06 18:50 | NUR ---
PATIENT RESTING IN RECLINER WITH BLE ELEVATED, AT CHAIRSIDE. PATIENT REPORTS "FEELING GOOD". SHE SAYS HER PAIN IS VERY MILD AND DECLINES ANY PHARMALOGICAL INTERVENTION AT THIS TIME. FRESH ICE WATER PROVIDED. NO REQUESTS, CALL LIGHT AND PERSONAL BELONGINGS IN REACH.
--- NOTE | 2025-04-06 19:31 | NUR ---
REPORT RECEIVED FROM HEIDI STANFORD. PATIENT SITTING UPRIGHT IN CHAIR. FAMILY IN ROOM WITH PATIENT. PATIENT REPORTS PAIN CONTROLLED AT THIS TIME, DENIES ANY NEEDS, CALL LIGHT IN REACH.
--- NOTE | 2025-04-06 20:45 | NUR ---
PATIENT UP IN CHAIR, SCHEDULED MEDICATIONS ADMINISTERED PER ORDER, VS OBTAINED AND RECORDED. ASSESSMENT COMPLETE, NO NEW DRAINAGE ON DRESSING ON RIGHT HIP. KADE HOSE IN PLACE. PATIENT DENIES FURTHER NEEDS, CALL LIGHT IN REACH. REQUESTING TO STAY IN CHAIR FOR NOW.
--- NOTE | 2025-04-06 22:38 | NUR ---
PATIENT RESTING WITH EYES CLOSED, RESPIRATIONS EVEN AND UNLABORED. NO NEEDS IDENTIFIED, CALL LIGHT IN REACH.
[2025-04-07] VITALS (9 sets, daily range): BP systolic 114–148; BP diastolic 51–64
--- NOTE | 2025-04-07 00:01 | NUR ---
ROUNDED ON PATIENT, PATIENT RESTING WITH EYES CLOSED, RESPIRATIONS ARE EVEN AND UNLABORED. NO NEEDS IDENTIFIED, CALL LIGHT IN REACH.
--- NOTE | 2025-04-07 01:51 | NUR ---
ROUNDED ON PATIENT, PATIENT RESTING COMFORTABLY IN CHAIR WITH EYES CLOSED, RESPIRATIONS EVEN AND UNLABORED. NO NEEDS IDENTIFIED, CALL LIGHT IN REACH
--- NOTE | 2025-04-07 04:33 | NUR ---
CALL LIGHT ANSWERED, PATIENT UP TO RESTROOM TO VOID WITH USE OF FWW AND X1 ASSIST. PATIENT TOLERATED WELL. ATTEMPTED TO GO BACK TO BED, HOWEVER PATIENT REPORTED THAT IT WAS MORE UNCOMFORTABLE IN THE BED AND CAUSED HER PAIN. PATIENT UP TO CHAIR USING FWW AND X1 ASSIST, SCD IN PLACE. WARM BLANKETS PROVIDED, COLD THERAPY OVER SITE. FRESH WATER PROVIDED. PRN PAIN MEDICATION ADMINISTERED PER PATIENT REQUEST FOR 8/10 RLE PAIN FOLLOWING AMBULATION. SURGICAL DRESSING VISUALIZED, NO NEW DRAINAGE. PATIENT DENIES OTHER NEEDS, CALL LIGHT IN REACH.
[2025-04-07 05:31] LABS: BASOPHILS 0.4 % (0.1-1.2); EOSINOPHILS 0.4 % (0.7-5.8); HEMATOCRIT 37.9 % (34.1-44.9); HEMOGLOBIN 11.5 g/dL (11.2-15.7); LYMPHOCYTES 30.5 % (19.3-51.7); MCH 26.7 PG (25.6-32.2); MCHC 30.3 g/dL (32.2-35.5); MCV 88.1 fL (79.4-94.8); MONOCYTES 8.8 % (4.7-12.5); NEUTROPHILS 59.7 % (34.0-71.1); PLATELET COUNT 232 K/uL (182-369)
[2025-04-07 05:43] LABS: ANION GAP 9.7 (7-21); BUN/CREATININE RATIO 14.42 (6.0-28.6); CALCIUM 8.4 mg/dL (8.5-10.1); CREATININE, SERUM 1.04 mg/dL (0.55-1.02); MAGNESIUM 2.2 mg/dL (1.8-2.4); POTASSIUM 4.7 mmol/L (3.5-5.1)
--- NOTE | 2025-04-07 07:05 | NUR ---
REPORT RECEIVED FROM HEIDI CASTRO. PATIENT IS RESTING IN RECLINER WITH EYES CLOSED, RR EVEN AND UNLABORED. PATIENT WAKES WHEN RNs ENTER. CRYOCUFF AND SCDs IN PLACE, BLE ELEVATED. NO REQUESTS, CALL LIGHT AND PERSONAL BELONGINGS IN REACH.
--- NOTE | 2025-04-07 08:00 | NUR ---
INTO SEE PATIENT. PATIENT GETTING BACK TO CHAIR AFTER AMBULATION WITH [employer] WEIGH[employer]STER. PATIENT STATES SHE IS SORE TODAY. WILL DISCHARGE HOME WITH HER DAUGHTER WHEN MEDICALLY CLEARED. IMM LETTER COMPLETED AT 0800. FOR POTENTIAL D/C THIS WEEKEND. NO FUTHER CM NEEDS AT THIS TIME.
--- NOTE | 2025-04-07 08:37 | NUR ---
MEDICATION ADMINSITERED, SEE JAN. ASSESSMENT COMPLETE. PATIENT IS COMPLAINING OF INCREASED PAIN AND STIFFNESS TODAY. PATIENT EDUCATED ON COURSE OF POST-OP RECOVERY AND VERBALIZES UNDERSTANDING. PATIENT ENCOURAGED TO MOVE FREQUENTLY TODAY, EVEN IF THIS IS JUST TO JANUARY IN PLACE EVERY HOUR WITH STAFF OR FREQUENTLY PERFORM ANKLE PUMPS IN RECLINER. PATIENT VERBALIZES UNDERSTANDING AND AGREEABLE. REDDENED AREA WITH SMALL SKIN SPLIT UNDER RIGHT SIDE OF PANNUS IS CLEANSED, PATTED DRY. THICKENED BARRIER CREAM APPLIED WITH PILLOW CASE TO SEPERATE SKIN FOLD. PATIENT'S SURGICAL DRESSING IS DRY AND INTACT WITH A SCANT AMOUNT OF DARK RED SHADOWING TO UPPER PORTION OF DRESSING - UNCHANGED FROM YESTERDAY. PATIENT REMAINS UP IN RECLINER PER HER REQUEST, CRYOCUFF IN PLACE, SCDs IN PLACE, KADE HOSE IN PLACE. PATIENT'S RIGHT PEDAL PULSE IS 2+, PATIENT DENIES NUMBNESS OR TINGLING. PATIENT REPORTS HER PAIN UPON WAKING THIS MORNING IS 6/10. PRN PAIN MEDICATION PROVIDED, PATIENT REPORTS SHE FEELS HER PAIN IS MORE STIFFNESS RELATED. PATIENT AGAIN VERBALIZES UNDERSTANDING OF MOVEMENT TODAY. FRESH ICE WATER AND FRESH ICE/WATER IN CRYOCUFF MACHINE PROVIDED BY TERRIE PAULSON. PATIENT HAS NO REQUESTS, CALL LIGHT AND PERSONAL BELONGINGS IN REACH, BREAKFAST TRAY IS IN FRONT OF HER.
--- NOTE | 2025-04-07 09:59 | NUR ---
RESPIRATORY THERAPY IN WITH PATIENT AT THIS TIME. PATIENT REPORTS THAT PHYSICAL THERAPY WENT WELL, SHE IS FEELING LESS STIFF. RATES HER PAIN A 5/10 AT THE MOMENT. JOSE LUIS FROM RESPIRATORY THERAPY REMAINS IN ROOM.
--- NOTE | 2025-04-07 11:04 | NUR ---
SPOKE WITH AND DAUGHTER ABOUT HOME HEALTH. ANSWERED QUESTIONS. NO FUTHER NEEDS.
--- NOTE | 2025-04-07 11:12 | NUR ---
PT NOT AVAILABLE FOR VISIT. TALKED BRIEFLY WITH IN FRIAS. EXPRESSED SITUATIONALLY CONSISTENT EMOTIONS, STATED AWARENESS OF CONDITION AND NEED FOR TIME TO HEAL. DIRECTOR OF CURRICULUM PROVIDED SUPPORTIVE PRESENCE, HOSPITALITY, PRAYER, FACILITATED INTERACTION WITH THERAPY ANIMAL. EXPRESSED APPRECIATION.
--- NOTE | 2025-04-07 11:17 | NUR ---
YAS IN PHYSICAL THERAPY IN WORKING WITH PATIENT AT THIS TIME. PATIENT HAS TWO VISITORS PRESENT IN ROOM.
--- NOTE | 2025-04-07 11:50 | NUR ---
DRESSING CHANGED TO PATIENT'S IV IN HER LEFT AC. IV CONTINUES LEAKING MILDLY. DRESSING IS C/D/I AT THIS TIME. PATIENT HAS NO REQUESTS, CALL LIGHT AND PERSONAL BELONGINGS IN REACH, VISITORS REMAIN IN ROOM.
--- NOTE | 2025-04-07 15:32 | NUR ---
MEDICATIONS ADMINISTERED, SEE MAR. PATIENT RESTING IN RECLINER WITH BLE ELEVATED AND SCDs IN PLACE. THIS RN ENCOURAGED PATIENT TO AMBULATE. PATIENT AMBULATES ONE LAP AROUND NURSE'S STATION WITH VERBAL CUES AND FWW. PATIENT COMPLAINS OF STIFFNESS AND PAIN SHE RATES 4/10 AT THIS TIME. PATIENT TOLERATES WALK WELL. PATIENT RETURNS TO ROOM AND SITS ON EDGE OF BED. DRESSING TO RIGHT HIP IS DRY AND INTACT, SHADOWING REMAINS UNCHANGED FROM THIS AM. PATIENT HAS BRUISING AROUND THE DRESSING AND EDEMA TO HER RLE. 2+ PEDAL PULSES, DENIES NUMBNESS OR TINGLING. TERRIE VELASQUEZ ARRIVES TO ASSIST PATIENT IN TAKING A SHOWER. PATIENT'S IV IN HER LEFT AC CONTINUES TO BE LEAKY, DISCUSSED WITH PATIENT THAT WE MAY NEED TO PLACE A NEW IV. PATIENT AGREEABLE. PATIENT REMAINS WITH TERRIE VELASQUEZ AT THIS TIME.
--- NOTE | 2025-04-07 16:32 | NUR ---
EVATERRIE REMAINS IN ROOM ASSISTING PATIENT WITH A SHOWER.
--- NOTE | 2025-04-07 17:15 | NUR ---
PATIENT WANTED A SHOWER SO I ASSISTED HER TO THE BATHROOM, HELPED HER WASH HER HAIR, BACK AND LEGS, HELPED HER GET ALL CLEANED UP AND DRYED OFF. ASSISTED HER WITH GETTING DRESSED, KADE HOSE, SOCKS AND SCDS BACK ON. HELPED HER GET HER HAIR DONE, GOT HER A WARM BLANKET FROM WARMER. A SODA AND FRESH ICE WATER AND HER CRYO CUFF BACK ON HER HIP. SHE IS WAITING FOR DINNER AT THE MOMENT. CALL LIGHT WITH IN REACH AND NOTHING ELSE NEEDED AT THIS TIME.
--- NOTE | 2025-04-07 17:56 | NUR ---
PATIENT RESTING IN CHAIR AND HAS FINISHED SUPPER - SUPPER TRAY REMOVED. PATIENT REPORTS HER PAIN IS "GOOD" AND STATES IT IS A 2/10. NO REQUESTS, CALL LIGHT AND PERSONAL BELONGINGS IN REACH.
--- NOTE | 2025-04-07 18:58 | NUR ---
PATIENT UP IN RECLINER WITH BLE ELEVATED, SCDs IN PLACE, CRYOCUFF IN PLACE. PATIENT'S EYES ARE CLOSED, MOUTH OPEN, RR EVEN AND UNLABORED. CALL LIGHT AND PERSONAL BELONGINGS IN REACH.
--- NOTE | 2025-04-07 19:24 | NUR ---
REPORT RECEIVED FROM DAY SHIFT RN. PATIENT IN BATHROOM WITH DAY SHIFT ROBOTICS TECHNOLOGIST. NO CURRENT NEEDS AT THIS TIME.
--- NOTE | 2025-04-07 19:38 | NUR ---
PATIENT REPORTING 5/10 RIGHT HIP PAIN. PRN PAIN MEDICATION ADMINISTERED PER PATIENT REQUEST. PATIENT RESTING IN CHAIR. TEDHOSE IN PLACE. FRESH ICE PLACED IN CRYO CUFF. CRYO CUFF PLACED ON RIGHT HIP. PATIENT DENIES FURTHER NEEDS AT THIS TIME. CALL LIGHT IN REACH. VS AND I&Os OBTAINED AND RECORDED.
--- NOTE | 2025-04-07 19:45 | NUR ---
PT ASSISTED BACK TO RECLINER FROM BR USE. SBA, FWW. PT VOIDED AND HAD BM. NEW ICE TO CRYOCUFF, PLACED TO RIGHT HIP. SCD'S OFF WHILE UP IN RECLINER. VS OBTAINED AND RECORDED.
--- NOTE | 2025-04-07 21:14 | NUR ---
PATIENT RESTING IN CHAIR WITH EYES CLOSED. SCHEDULED MEDICATIONS ADMNISTRED. FRESH WATER PROVIDED. PATIENT DENIES FURTHER NEEDS. CALL LIGHT IN REACH. CHAIR ALARM ON.
--- NOTE | 2025-04-07 23:39 | NUR ---
PATIENT RESTING IN CHAIR WITH EYES CLOSED. RESPIARTIONS EVEN AND UNLABORED. CALL LIGHT IN REACH.
[2025-04-08] VITALS (9 sets, daily range): BP systolic 113–152; BP diastolic 47–61
--- NOTE | 2025-04-08 01:55 | NUR ---
CALL LIGHT ANSWERED. PATIENT UP TO BATHROOM USING 1P SBA AND FWW TO VOID. PATIENT BACK TO CHAIR. CHAIR ALARM ON. SCDs IN PLACE. FRESH ICE AND WATER PLACED IN CRYO CUFF. CRYO CUFF IN PLACE ON RIGHT HIP WITH SKIN BARRIER IN PLACE. PATIENT DENIES FURTHER NEEDS AT THIS TIME. CALL LIGHT IN REACH.
--- NOTE | 2025-04-08 03:56 | NUR ---
PATIENT RESTING IN CHAIR WITH EYES CLOSED. RESPIRATIONS EVEN AND UNLABORED. CALL LIGHT IN REACH.
[2025-04-08 05:16] LABS: BASOPHILS 0.5 % (0.1-1.2); EOSINOPHILS 0.3 % (0.7-5.8); HEMATOCRIT 39.9 % (34.1-44.9); HEMOGLOBIN 12.2 g/dL (11.2-15.7); LYMPHOCYTES 25.8 % (19.3-51.7); MCHC 30.6 g/dL (32.2-35.5); MCV 88.3 fL (79.4-94.8); MONOCYTES 7.1 % (4.7-12.5); PLATELET COUNT 218 K/uL (182-369); RBC 4.52 M/uL (3.93-5.22)
[2025-04-08 05:39] LABS: ANION GAP 7.7 (7-21); BUN/CREATININE RATIO 19.51 (6.0-28.6); CALCIUM 8.8 mg/dL (8.5-10.1); CREATININE, SERUM 0.82 mg/dL (0.55-1.02); MAGNESIUM 2.2 mg/dL (1.8-2.4); POTASSIUM 4.7 mmol/L (3.5-5.1)
--- NOTE | 2025-04-08 07:26 | NUR ---
Pt report received from HEIDI Luu
--- NOTE | 2025-04-08 08:06 | NUR ---
BLOOD SUGAR CHECKED AND IV ALARM BEGAN TO GO OFF, HEIDI CALDERON NOTIFIED. GRANDDAUGHTER IN THE ROOM. CALL LIGHT AND PERSONAL ITEMS ARE WITHIN REACH. NO CARES WERE REQUESTED.
--- NOTE | 2025-04-08 14:31 | NUR ---
1P SBA PT AMBULATED THE SHORT ROUND USING FWW. PT TOLERATED ACTIVITY WELL WITHOUT C/O INCREASED PAIN. CUES PROVIDED FOR POSTURE AND POSITIONING OF FEET AND WALKER. PT BACK TO CHAIR, CRYO CUFF ON, BLE ELEVATED, CHAIR ALARM ON, CALL LIGHT IN REACH, DAUGHTER IN ROOM.
--- NOTE | 2025-04-08 16:50 | NUR ---
Pt is up to the rest room and Aide Petra is in with pt to accompany her on a walk around the nurse's station. Pt's daughter (or granddaughter) is in room as well. Pt rates her pain a 3 out of 10 and was given 5mg Oxy prior to ambulating.
--- NOTE | 2025-04-08 17:10 | NUR ---
NIKITA TO THE BATHROOM. HEIDI COVARRUBIAS ENTERED THE ROOM TO ADMINISTER MEDICATION. PATIENT AMBULATED HALLWAY WITH THIS GUMMING MACHINE OPERATOR AND THEIR DAUGHTER. PATIENT IS CURRENTLY SITTING UP IN THEIR CHAIR WITH DAUGHTER VISITING. CALL LIGHT AND PERSONAL ITEMS ARE WITHIN REACH. FRESH ICE WATER WAS PROVIDED.
--- NOTE | 2025-04-08 18:51 | NUR ---
Surgical site reassessment reveals dressing is CDI, no hardness, skin is cool (cryo cuff in use, fabric between cuff and skin). Pt denies increased pain at this time.
--- NOTE | 2025-04-08 18:52 | NUR ---
Pt worked with PT this morning and seemed to do well. She was given 5mg Oxy with her scheduled tylenol and gabapentin today and her pain never got higher than a 6 out of 10. Pt ambulated the short hallway (east side round) x3 on day shift and denied increased pain with this. She did state that she felt "sore" afterwards but stated that once she sat back in the chair, elevated her legs, and applied the cryocuff, she felt better. She has had BMs this shift. Pt has had a family member bring food in for her because, she states, she doesn't really care for the food at the hospital. Pt has been in a pleasant mood this shift and has been up in the chair for most of the day.
--- NOTE | 2025-04-08 19:13 | NUR ---
REPORT RECIEVED FROM HEIDI COVARRUBIAS. PATIENT RESTING IN BED AND DENIES ANY NEEDS AT THIS TIME. CALL LIGHT AND PERSONAL BELONGINGS ARE WITHIN REACH.
--- NOTE | 2025-04-08 20:09 | NUR ---
PATIENT SITTING UP IN HER CHAIR VISITING WITH HER . PATIENT DENIES ANY PAIN AT THIS TIME. PATIENT WITHOUT FURTHER NEEDS. CALL LIGHT AND PERSONAL BELONGINGS ARE WITHIN REACH. VITAL SIGNS ARE STABLE.
--- NOTE | 2025-04-08 23:18 | NUR ---
PATIENT RESTING IN HER CHAIR WITH HER EYES CLOSED. EVEN AND UNLABORED RESPIRATIONS NOTED. CALL LIGHT AND PERSONAL BELONGINGS ARE WITHIN REACH.
--- NOTE | 2025-04-09 00:17 | NUR ---
PATIENT RESTING IN HER CHAIR WITH HER EYES CLOSED AND MOUTH OPEN. EVEN AND UNLABORED RESPIRATIONS NOTED. CALL LIGHT AND PERSONAL BELONGINGS ARE WITHIN REACH.
--- NOTE | 2025-04-09 01:18 | NUR ---
PATIENT RESTING IN HER CHAIR WITH HER EYES CLOSED. EVEN AND UNLABORED RESPIRATIONS NOTED. CALL LIGHT AND PERSONAL BELONGINGS ARE WITHIN REACH.
--- NOTE | 2025-04-09 03:00 | NUR ---
PATIENT SITTING UP IN CHAIR WITH HER LEGS ELEVATED AND HER EYES CLOSED. EVEN AND UNLABORED RESPIRATIONS NOTED. CALL LIGHT AND PERSONAL BELONGINGS ARE WITHIN REACH.
[2025-04-09 05:24] LABS: BASOPHILS 0.3 % (0.1-1.2); EOSINOPHILS 0.3 % (0.7-5.8); HEMATOCRIT 37.8 % (34.1-44.9); HEMOGLOBIN 11.6 g/dL (11.2-15.7); LYMPHOCYTES 23.9 % (19.3-51.7); MCH 26.9 PG (25.6-32.2); MCHC 30.7 g/dL (32.2-35.5); MCV 87.5 fL (79.4-94.8); MONOCYTES 8.1 % (4.7-12.5); NEUTROPHILS 67.1 % (34.0-71.1); PLATELET COUNT 220 K/uL (182-369); RBC 4.32 M/uL (3.93-5.22)
[2025-04-09 05:27] VITALS: BP 113/60
[2025-04-09 05:36] LABS: ANION GAP 5.6 (7-21); BUN/CREATININE RATIO 17.94 (6.0-28.6); CALCIUM 8.4 mg/dL (8.5-10.1); CREATININE, SERUM 0.78 mg/dL (0.55-1.02); MAGNESIUM 1.9 mg/dL (1.8-2.4); POTASSIUM 4.6 mmol/L (3.5-5.1)
--- NOTE | 2025-04-09 07:38 | NUR ---
PT AWAKE UP IN THE CHAIR AT TIME OF SHIFT REPORT. AGREES SHE IS COMFORTABLE AND WITHOUT NEEDS. FRESH H20 AND CALL LIGHT IN REACH
[2025-04-09] MEDS ORDERED: ASPIRIN325 MG PO (08:53)
[2025-04-09] MEDS ORDERED: GABAPENTIN300 MG PO (08:53)
[2025-04-09] MEDS ORDERED: OXYCODONE HCL5 MG PO (08:53)
[2025-04-09] MEDS ORDERED: SENNA LAX8.6 MG PO (08:53)
[2025-04-09] MEDS ORDERED: ACETAMINOPHEN500 MG PO (08:53)
--- NOTE | 2025-04-09 09:09 | NUR ---
BREAKFAST WELL TOLERATED. DR LANE IN AFTER THAT PT TO BE DC'D TODAY. P/T IN TO WORK WITH PT SHE IS COOPERATIVE AND UP AMBULATING.
[2025-04-09 10:27] VITALS: BP 113/60
--- NOTE | 2025-04-09 10:38 | NUR ---
DC INSTRUCTIONS PROVIDED ALL QUESTIONS ANSWERED PT VERBALIZES UNDERSTANDING. PT REMAINS IN THE RECLINER AFTER WORKING WITH P/T ANTICIPATES HER DAUGHTER COMING TO GET HER. CRYO FRESHENED AND IS IN PLACE
[2025-04-09 10:47] VITALS: BP 111/57
--- NOTE | 2025-04-09 10:48 | NUR ---
PT ASLEEP IN CHAIR WOKE UP WHEN I STARTED CHANGING LINENS TOOK VITALS, PT REPORTED NO PAIN OR DIZZINESS GOT PT FRESH ICE WATER CALL LIGHT WITHIN REACH
== END 2025-04-09 12:40 | disposition home or self-care (01) | DRG 522 ==
LOC: ED 16:44 → MS 19:02
PROVIDERS: Emergency Medicine; Student in an Organized Health Care Education/Training Program; ADMIT Specialist; ATTEND Specialist
PROC: 0SRR0JZ Replacement of Right Hip Joint, Femoral Surface with Synthetic Substitute, Open Approach (ICD-10-PCS; principal; 2025-04-05 13:45)
DX: S72.041A Displaced fracture of base of neck of right femur, initial encounter for closed fracture (principal); J84.9 Interstitial pulmonary disease, unspecified; C85.92 Non-Hodgkin lymphoma, unspecified, intrathoracic lymph nodes; I25.10 Atherosclerotic heart disease of native coronary artery without angina pectoris; I10 Essential (primary) hypertension; E03.9 Hypothyroidism, unspecified; F39 Unspecified mood [affective] disorder; D50.9 Iron deficiency anemia, unspecified; J44.89 Other specified chronic obstructive pulmonary disease; Z98.84 Bariatric surgery status; Z87.01 Personal history of pneumonia (recurrent); Z90.710 Acquired absence of both cervix and uterus; Z87.891 Personal history of nicotine dependence; Z98.890 Other specified postprocedural states; Z88.0 Allergy status to penicillin; Z88.1 Allergy status to other antibiotic agents; Z88.5 Allergy status to narcotic agent; Z88.6 Allergy status to analgesic agent; Z79.1 Long term (current) use of non-steroidal anti-inflammatories (NSAID); Z79.51 Long term (current) use of inhaled steroids; Z79.890 Hormone replacement therapy; Z79.891 Long term (current) use of opiate analgesic; Z79.899 Other long term (current) drug therapy; W18.39XA Other fall on same level, initial encounter
CPT/HCPCS: 01214; 36415; 51702; 51798; 64450; 71045; 72170; 73502; 80048; 83735; 85025; 85610; 93005; 93010; 94640; 94760; 94762; 94799; 96374; 96375; 96376; 97110; 97116; 97161; 97165; 97530; 97535; 99284-25; A9270; C1776; J0690; J1100; J1171; J1790; J2003; J2250; J2274; J2405; J2704; J2795; J3010; J7121; J7605